=== PATIENT | female | born 1945 | race Caucasian/White ===

== ENCOUNTER 2022-07-16 13:09 | Inpatient (IN) ==
[2022-07-16] MEDS ORDERED: SODIUM CHLORIDE 0.9% 1,000 ML IV STA (13:14)
[2022-07-16 14:17] LABS: Alanine Aminotransferase 39 U/L (13-56); Alkaline Phosphatase 73 U/L (45-117); Aspartate Amino Transferase 21 U/L (0-37); Bilirubin,Total < 0.39 MG/DL (0.20-1.00); Blood Urea Nitrogen 5 MG/DL (7-18); Calcium 8.9 MG/DL (8.5-10.1); Carbon Dioxide 26 MMOL/L (21-32); Chloride 102 MMOL/L (98-107); Glucose 108 MG/DL (74-106); Sodium 136 MMOL/L (136-145); Total Protein 7.2 G/DL (6.4-8.2)
[2022-07-16 15:07] LABS: Basophils % 0.4 % (0.0-0.8); Eosinophils # 0.1 10*3/uL (0.0-0.87); Eosinophils % 2.3 % (0.00-10.9); Hematocrit 32.6 VOL% (35.7-47.0); Hemoglobin 10.7 GM/DL (12.0-16.0); Immature Granulocytes Absolute 0.05 #; Lymphocytes # 0.9 10*3/uL (1.4-4.0); Lymphocytes % 16.6 % (21.3-54.2); Mean Corpuscular HGB Conc 32.8 GM/DL (32-36); Mean Corpuscular Volume 91.8 FL (87-102); Mean Platelet Volume 9.8 FL (9.6-12.0); Monocytes # 0.4 10*3/uL (0.11-0.8); Monocytes % 7.6 % (1.7-12.7); Neutrophils % 72.1 % (38.7-73.9); Platelet Count 233 T/CUMM (130-400); Red Blood Count 3.55 MC/CUMM (3.8-5.5); Red Cell Distribution Width 13.8 % (9.3-17.3); White Blood Count 5.2 T/CUMM (4-12)
[2022-07-16] MEDS ORDERED: ONDANSETRON 4 MG/2 ML VIAL IV PRN (16:17)
[2022-07-16] MEDS ORDERED: MAGNESIUM SULF RIDER 4 GM/100 ML PREMIX IV PRN (16:17)
[2022-07-16] MEDS ORDERED: MAGNESIUM SULF RIDER 2 GM/50 ML PREMIX IV PRN (16:17)
[2022-07-16] MEDS ORDERED: MELATONIN 3 MG TABLET PO PRN (16:19)
[2022-07-16] MEDS ORDERED: DEXTROSE 10% 250 ML BAG IV PRN (16:20)
[2022-07-16] MEDS ORDERED: GLUCAGON 1 MG VIAL IM PRN (16:20)
[2022-07-16] MEDS ORDERED: hydrALAZINE 20 MG/1 ML VIAL IV PRN (16:20)
[2022-07-16] MEDS ORDERED: ACETAMINOPHEN 325 MG TABLET PO PRN (16:20)
[2022-07-16] MEDS: CIPROFLOXACIN INJ 400 MG/200 ML PREMIX IV SCH (18:00)
[2022-07-16] MEDS: SODIUM CHLORIDE 0.9% 1,000 ML IV SCH (18:01)
[2022-07-16] MEDS: ASCORBIC ACID 500 MG TABLET PO SCH (21:10)
[2022-07-16] MEDS: metroNIDAZOLE INJ 500 MG/100 ML PREMIX IV SCH ×2 (21:10→22:21)
[2022-07-16] MEDS: ENOXAPARIN 40 MG/0.4 ML SYRINGE SUBCUT SCH (21:10)
[2022-07-16 21:34] LABS: RBC,Urine 1 /HPF (0-4); Squamous Epithelial Cell,Urine Occasional /HPF (0-10)
[2022-07-16 21:35] LABS: Bilirubin,Urine Negative (Negative); Blood, Urine Negative (Negative); Glucose,Urine (UA) Negative (Negative); Ketones,Urine Negative (Negative); Nitrite,Urine Negative (Negative); Protein,Urine Negative (Negative); Urine Appearance Clear (Clear); Urine Color Yellow (Yellow); Urine Urobilinogen 0.2 eU/dL (<2.0)
[2022-07-17] MEDS: metroNIDAZOLE INJ 500 MG/100 ML PREMIX IV SCH ×3 (02:57→20:44)
[2022-07-17] MEDS: CIPROFLOXACIN INJ 400 MG/200 ML PREMIX IV SCH ×2 (03:59→22:09)
[2022-07-17 05:24] LABS: Basophils % 0.6 % (0.0-0.8); Eosinophils # 0.2 10*3/uL (0.0-0.87); Eosinophils % 3.5 % (0.00-10.9); Hematocrit 35.7 VOL% (35.7-47.0); Hemoglobin 11.4 GM/DL (12.0-16.0); Immature Granulocytes % 1.3 %; Immature Granulocytes Absolute 0.07 #; Lymphocytes # 0.9 10*3/uL (1.4-4.0); Lymphocytes % 17.3 % (21.3-54.2); Mean Corpuscular HGB Conc 31.9 GM/DL (32-36); Mean Corpuscular Volume 94.2 FL (87-102); Mean Platelet Volume 9.6 FL (9.6-12.0); Monocytes # 0.4 10*3/uL (0.11-0.8); Monocytes % 8.3 % (1.7-12.7); Platelet Count 227 T/CUMM (130-400); Red Blood Count 3.79 MC/CUMM (3.8-5.5); Red Cell Distribution Width 13.9 % (9.3-17.3); White Blood Count 5.2 T/CUMM (4-12)
[2022-07-17 05:43] LABS: Alanine Aminotransferase 34 U/L (13-56); Albumin 3.3 G/DL (3.4-5.0); Alkaline Phosphatase 68 U/L (45-117); Aspartate Amino Transferase 20 U/L (0-37); Bilirubin,Total < 0.39 MG/DL (0.20-1.00); Blood Urea Nitrogen 4 MG/DL (7-18); Calcium 8.4 MG/DL (8.5-10.1); Carbon Dioxide 28 MMOL/L (21-32); Chloride 107 MMOL/L (98-107); Glucose 145 MG/DL (74-106); Osmolality,Calculated 280.3 MOS/KG (273-304); Potassium 3.8 MMOL/L (3.5-5.1); Sodium 141 MMOL/L (136-145); Total Protein 6.4 G/DL (6.4-8.2)
[2022-07-17 05:52] LABS: Risk Ratio 3.1; Thyroid Stimulating Hormone 5.4 uIU/ml (0.358-3.74); VLDL Cholesterol 35.6 MG/DL
[2022-07-17] MEDS: SODIUM CHLORIDE 0.9% 1,000 ML IV SCH ×2 (10:04→23:08)
[2022-07-17] MEDS: CETIRIZINE 10 MG TABLET PO SCH (12:02)
[2022-07-17] MEDS: ZINC GLUCONATE 50 MG TABLET PO SCH (12:03)
[2022-07-17] MEDS: ASCORBIC ACID 500 MG TABLET PO SCH ×2 (12:03→20:45)
[2022-07-17] MEDS: CHOLECALCIFEROL 1,000 UNIT TABLET PO SCH (12:03)
[2022-07-17] MEDS: PANTOPRAZOLE 40 MG TABLET PO SCH (12:04)
[2022-07-17] MEDS: ENOXAPARIN 40 MG/0.4 ML SYRINGE SUBCUT SCH (20:45)
[2022-07-18] MEDS: metroNIDAZOLE INJ 500 MG/100 ML PREMIX IV SCH ×3 (03:47→20:14)
[2022-07-18 05:41] LABS: Basophils % 0.6 % (0.0-0.8); Eosinophils # 0.2 10*3/uL (0.0-0.87); Eosinophils % 4.3 % (0.00-10.9); Hematocrit 36.4 VOL% (35.7-47.0); Hemoglobin 11.4 GM/DL (12.0-16.0); Immature Granulocytes % 0.6 %; Immature Granulocytes Absolute 0.03 #; Lymphocytes # 0.9 10*3/uL (1.4-4.0); Mean Corpuscular HGB Conc 31.3 GM/DL (32-36); Mean Corpuscular Volume 94.5 FL (87-102); Mean Platelet Volume 9.3 FL (9.6-12.0); Monocytes # 0.5 10*3/uL (0.11-0.8); Monocytes % 10.4 % (1.7-12.7); Neutrophils % 65.1 % (38.7-73.9); Platelet Count 226 T/CUMM (130-400); Red Blood Count 3.85 MC/CUMM (3.8-5.5); Red Cell Distribution Width 14.2 % (9.3-17.3); White Blood Count 4.6 T/CUMM (4-12)
[2022-07-18 06:01] LABS: Alanine Aminotransferase 35 U/L (13-56); Albumin 3.3 G/DL (3.4-5.0); Alkaline Phosphatase 65 U/L (45-117); Aspartate Amino Transferase 19 U/L (0-37); Bilirubin,Total < 0.39 MG/DL (0.20-1.00); Blood Urea Nitrogen 6 MG/DL (7-18); Calcium 8.4 MG/DL (8.5-10.1); Carbon Dioxide 27 MMOL/L (21-32); Chloride 109 MMOL/L (98-107); Glucose 122 MG/DL (74-106); Osmolality,Calculated 277.4 MOS/KG (273-304); Potassium 3.7 MMOL/L (3.5-5.1); Sodium 140 MMOL/L (136-145); Total Protein 6.2 G/DL (6.4-8.2)
[2022-07-18] MEDS: ASCORBIC ACID 500 MG TABLET PO SCH ×2 (09:12→20:15)
[2022-07-18] MEDS: CHOLECALCIFEROL 1,000 UNIT TABLET PO SCH (09:12)
[2022-07-18] MEDS: CETIRIZINE 10 MG TABLET PO SCH (09:12)
[2022-07-18] MEDS: ZINC GLUCONATE 50 MG TABLET PO SCH (09:12)
[2022-07-18] MEDS: PANTOPRAZOLE 40 MG TABLET PO SCH (09:12)
[2022-07-18] MEDS: SODIUM CHLORIDE 0.9% 1,000 ML IV SCH (09:14)
[2022-07-18] MEDS: CIPROFLOXACIN INJ 400 MG/200 ML PREMIX IV SCH ×2 (09:26→21:15)
[2022-07-18] MEDS: LACTATED RINGERS 1,000 ML IV SCH (10:35)
[2022-07-18] MEDS: ENOXAPARIN 40 MG/0.4 ML SYRINGE SUBCUT SCH (20:15)
[2022-07-19] MEDS: metroNIDAZOLE INJ 500 MG/100 ML PREMIX IV SCH ×3 (04:56→20:11)
[2022-07-19] MEDS: LACTATED RINGERS 1,000 ML IV SCH ×3 (07:25→14:53)
[2022-07-19] MEDS: ASCORBIC ACID 500 MG TABLET PO SCH ×2 (08:58→20:12)
[2022-07-19] MEDS: PANTOPRAZOLE 40 MG TABLET PO SCH (08:58)
[2022-07-19] MEDS: CIPROFLOXACIN INJ 400 MG/200 ML PREMIX IV SCH ×2 (08:59→21:46)
[2022-07-19] MEDS: ZINC GLUCONATE 50 MG TABLET PO SCH (08:59)
[2022-07-19] MEDS: CHOLECALCIFEROL 1,000 UNIT TABLET PO SCH (08:59)
[2022-07-19] MEDS: CETIRIZINE 10 MG TABLET PO SCH (08:59)
[2022-07-19 09:37] LABS: Basophils % 0.7 % (0.0-0.8); Eosinophils # 0.2 10*3/uL (0.0-0.87); Eosinophils % 3.5 % (0.00-10.9); Hemoglobin 11.3 GM/DL (12.0-16.0); Immature Granulocytes % 3.7 %; Immature Granulocytes Absolute 0.17 #; Lymphocytes # 0.8 10*3/uL (1.4-4.0); Lymphocytes % 17.1 % (21.3-54.2); Mean Corpuscular HGB Conc 32.3 GM/DL (32-36); Mean Corpuscular Volume 93.6 FL (87-102); Mean Platelet Volume 9.3 FL (9.6-12.0); Monocytes # 0.3 10*3/uL (0.11-0.8); Monocytes % 5.9 % (1.7-12.7); Neutrophils % 69.1 % (38.7-73.9); Platelet Count 228 T/CUMM (130-400); Red Blood Count 3.74 MC/CUMM (3.8-5.5); White Blood Count 4.6 T/CUMM (4-12)
[2022-07-19 09:50] LABS: Calcium 8.5 MG/DL (8.5-10.1); Osmolality,Calculated 277.5 MOS/KG (273-304); Potassium 3.5 MMOL/L (3.5-5.1)
[2022-07-19 14:21] LABS: Collection duration of stool Random h; Total Weight of Stool 6 g
[2022-07-19] MEDS ORDERED: BISACODYL 5 MG TABLET PO ONE (15:00)
[2022-07-19] MEDS ORDERED: POLYETHYLENE GLYCOL POWDER 255 GM BOTTLE PO ONE (18:00)
[2022-07-20] MEDS: LACTATED RINGERS 1,000 ML IV SCH ×2 (02:50→17:17)
[2022-07-20] MEDS: metroNIDAZOLE INJ 500 MG/100 ML PREMIX IV SCH ×3 (04:56→21:07)
[2022-07-20] MEDS ORDERED: POLYETHYLENE GLYCOL POWDER 255 GM BOTTLE PO ONE (05:00)
[2022-07-20 05:39] LABS: Basophils % 0.5 % (0.0-0.8); Eosinophils # 0.3 10*3/uL (0.0-0.87); Eosinophils % 5.1 % (0.00-10.9); Hemoglobin 11.2 GM/DL (12.0-16.0); Immature Granulocytes % 0.7 %; Immature Granulocytes Absolute 0.04 #; Lymphocytes # 0.9 10*3/uL (1.4-4.0); Lymphocytes % 16.6 % (21.3-54.2); Mean Corpuscular HGB Conc 32.9 GM/DL (32-36); Mean Corpuscular Volume 91.9 FL (87-102); Mean Platelet Volume 9.5 FL (9.6-12.0); Monocytes # 0.6 10*3/uL (0.11-0.8); Monocytes % 9.9 % (1.7-12.7); Neutrophils % 67.2 % (38.7-73.9); Platelet Count 207 T/CUMM (130-400); Red Cell Distribution Width 14.3 % (9.3-17.3); White Blood Count 5.5 T/CUMM (4-12)
[2022-07-20 05:49] LABS: PT Patient Result 11.2 SECS (10.1-12.1)
[2022-07-20 06:03] LABS: % Iron Saturation 13.9 % (18-50); Calcium 8.6 MG/DL (8.5-10.1); Ferritin 204.1 ng/mL (8-252); Osmolality,Calculated 273.5 MOS/KG (273-304); Potassium 3.1 MMOL/L (3.5-5.1)
[2022-07-20 06:22] LABS: Free T4 (Free Thyroxine) 1.24 NG/DL (0.76-1.46)
[2022-07-20] MEDS: CIPROFLOXACIN INJ 400 MG/200 ML PREMIX IV SCH ×2 (08:51→22:08)
[2022-07-20] MEDS: PANTOPRAZOLE 40 MG TABLET PO SCH (09:00)
[2022-07-20] MEDS: CETIRIZINE 10 MG TABLET PO SCH (09:00)
[2022-07-20] MEDS: ASCORBIC ACID 500 MG TABLET PO SCH ×2 (09:00→21:07)
[2022-07-20] MEDS: CHOLECALCIFEROL 1,000 UNIT TABLET PO SCH (09:00)
[2022-07-20] MEDS: ZINC GLUCONATE 50 MG TABLET PO SCH (09:00)
[2022-07-20 09:31] LABS: Class A beta Lactamase Not Detected (NotDetected); Clostridium difficile A & B Not Detected (NotDetected); E coli (ETEC) O157 Not Detected (NotDetected); Enterovirus D Not Detected (NotDetected); Rotavirus A & B Not Detected (NotDetected); Salmonella enterica Not Detected (NotDetected); Yersinia enterocolitica Not Detected (NotDetected); mecA-Methicillin Resistance Ge Not Detected (NotDetected)
[2022-07-20 10:34] LABS: Folate 14.52 NG/ML (5.38-24.0)
[2022-07-20] MEDS ORDERED: LIDOCAINE 2% 5 ML VIAL ONE (15:13)
[2022-07-20] MEDS ORDERED: propofoL 200 MG/20 ML VIAL IV ONE (15:13)
[2022-07-21] MEDS: metroNIDAZOLE INJ 500 MG/100 ML PREMIX IV SCH (04:22)
[2022-07-21 05:30] LABS: Basophils % 0.3 % (0.0-0.8); Eosinophils # 0.2 10*3/uL (0.0-0.87); Eosinophils % 1.9 % (0.00-10.9); Hemoglobin 11.2 GM/DL (12.0-16.0); Immature Granulocytes % 0.3 %; Immature Granulocytes Absolute 0.02 #; Lymphocytes # 0.8 10*3/uL (1.4-4.0); Lymphocytes % 9.9 % (21.3-54.2); Mean Corpuscular HGB Conc 32.9 GM/DL (32-36); Mean Corpuscular Volume 94.2 FL (87-102); Mean Platelet Volume 9.4 FL (9.6-12.0); Monocytes # 0.5 10*3/uL (0.11-0.8); Monocytes % 6.3 % (1.7-12.7); Neutrophils % 81.3 % (38.7-73.9); Platelet Count 206 T/CUMM (130-400); Red Blood Count 3.61 MC/CUMM (3.8-5.5); Red Cell Distribution Width 14.2 % (9.3-17.3); White Blood Count 7.9 T/CUMM (4-12)
[2022-07-21 05:47] LABS: Calcium 8.6 MG/DL (8.5-10.1); Osmolality,Calculated 279.3 MOS/KG (273-304); Potassium 3.6 MMOL/L (3.5-5.1)
[2022-07-21] MEDS: CHOLECALCIFEROL 1,000 UNIT TABLET PO SCH (09:28)
[2022-07-21] MEDS: ZINC GLUCONATE 50 MG TABLET PO SCH (09:28)
[2022-07-21] MEDS: ASCORBIC ACID 500 MG TABLET PO SCH ×2 (09:28→20:20)
[2022-07-21] MEDS: CETIRIZINE 10 MG TABLET PO SCH (09:29)
[2022-07-21] MEDS: PANTOPRAZOLE 40 MG TABLET PO SCH (09:29)
[2022-07-21] MEDS: CIPROFLOXACIN INJ 400 MG/200 ML PREMIX IV SCH ×2 (09:29→20:22)
[2022-07-21] MEDS: LACTATED RINGERS 1,000 ML IV SCH ×2 (09:34→23:45)
[2022-07-21] MEDS: COLESTIPOL 1 GM TABLET PO SCH ×2 (12:16→21:31)
[2022-07-21] MEDS: metroNIDAZOLE 500 MG TABLET PER TUBE SCH ×2 (14:45→20:20)
[2022-07-22 05:51] LABS: Basophils % 0.6 % (0.0-0.8); Eosinophils # 0.3 10*3/uL (0.0-0.87); Hemoglobin 10.5 GM/DL (12.0-16.0); Immature Granulocytes % 0.5 %; Immature Granulocytes Absolute 0.03 #; Lymphocytes % 15.3 % (21.3-54.2); Mean Corpuscular HGB Conc 32.8 GM/DL (32-36); Mean Corpuscular Volume 93.6 FL (87-102); Mean Platelet Volume 9.7 FL (9.6-12.0); Monocytes # 0.5 10*3/uL (0.11-0.8); Neutrophils % 71.6 % (38.7-73.9); Platelet Count 193 T/CUMM (130-400); Red Blood Count 3.42 MC/CUMM (3.8-5.5); Red Cell Distribution Width 14.5 % (9.3-17.3); White Blood Count 6.6 T/CUMM (4-12)
[2022-07-22 06:09] LABS: Calcium 8.2 MG/DL (8.5-10.1); Osmolality,Calculated 282.1 MOS/KG (273-304); Potassium 3.5 MMOL/L (3.5-5.1)
[2022-07-22 07:46] VITALS: BP 106/87
[2022-07-22] MEDS: ZINC GLUCONATE 50 MG TABLET PO SCH (09:21)
[2022-07-22] MEDS: CHOLECALCIFEROL 1,000 UNIT TABLET PO SCH (09:21)
[2022-07-22] MEDS: CIPROFLOXACIN INJ 400 MG/200 ML PREMIX IV SCH (09:21)
[2022-07-22] MEDS: ASCORBIC ACID 500 MG TABLET PO SCH (09:21)
[2022-07-22] MEDS: COLESTIPOL 1 GM TABLET PO SCH (09:22)
[2022-07-22] MEDS: metroNIDAZOLE 500 MG TABLET PER TUBE SCH (09:22)
[2022-07-22] MEDS: PANTOPRAZOLE 40 MG TABLET PO SCH (09:22)
[2022-07-22] MEDS: CETIRIZINE 10 MG TABLET PO SCH (09:22)
[2022-07-22 22:36] LABS: IgA Serum (MAYO) 139 mg/dL (61 - 356)
[2022-07-24 09:52] LABS: Tissue Transglutaminase IgA Ab < 1.2 U/mL
== END 2022-07-22 12:30 | disposition home or self-care (01) | DRG 392 ==
LOC: N.5E 13:09 → N.ED 13:09 → SUATTDRO 15:55 → N.5E 18:25
PROVIDERS: ADMIT Hospitalist; ATTEND Internal Medicine
PROC: COLONBX (2022-07-20 07:50)